=== PATIENT | male | born 1980 | race American Indian/Alaskan Native ===

== ENCOUNTER 2017-03-11 23:05 | Emergency (ER) | payer MEDICAID ==
[2017-03-11 23:10] VITALS: BP 168/103
[2017-03-12] MEDS ORDERED: TYLENOL PO ONE (00:47)
[2017-03-12] MEDS ORDERED: TORADOL IM ONE (00:47)
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
--- NOTE | 2017-03-12 07:19 | XRay Report ---
Chest with right ribs: History: Right hip pain, fall. Findings: No fracture lytic lesion at right ribs. No lung abnormality. Normal cardiomediastinal silhouette. Trachea is midline. Impression: No evidence of acute fracture. No acute lung changes.
== END 2017-03-12 02:16 | disposition home or self-care (01) ==
LOC: ED 23:05
DX: M54.9 Dorsalgia, unspecified (principal); R56.9 Unspecified convulsions; W01.0XXA Fall on same level from slipping, tripping and stumbling without subsequent striking against object, initial encounter; Y93.89 Activity, other specified; Y92.89 Other specified places as the place of occurrence of the external cause; Y99.8 Other external cause status
CPT/HCPCS: 71101; 96372; 99283; J1885

== ENCOUNTER 2017-03-14 23:54 | Emergency (ER) | payer MEDICAID ==
[2017-03-15 00:14] VITALS: BP 156/98
[2017-03-15] MEDS ORDERED: TYLENOL ONE (00:15)
[2017-03-15] MEDS ORDERED: TYLENOL PO ONE (02:07)
[2017-03-15] MEDS ORDERED: TORADOL IM ONE (02:54)
[2017-03-15] MEDS ORDERED: TORADOL ONE (02:59)
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
== END 2017-03-15 03:18 | disposition home or self-care (01) ==
LOC: ED 23:54
DX: Z76.0 Encounter for issue of repeat prescription (principal)
CPT/HCPCS: 96372; 99282; J1885

== ENCOUNTER 2017-05-07 16:08 | Emergency (ER) | payer MEDICAID ==
[2017-05-07 16:35] VITALS: BP 127/76
[2017-05-07] MEDS ORDERED: TORADOL IM ONE (18:05)
[2017-05-07] MEDS ORDERED: DELTASONE PO ONE (18:06)
[2017-05-07] MEDS ORDERED: DUONEB *Not for PRN Use IH ONE (18:06)
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
== END 2017-05-07 19:10 | disposition left against medical advice (07) ==
LOC: ED 16:08
DX: R05 Cough (principal); M54.5 Low back pain; G89.29 Other chronic pain; R56.9 Unspecified convulsions
CPT/HCPCS: 99281; J1885; J7512

== ENCOUNTER 2017-05-31 15:35 | Emergency (ER) | payer MEDICAID ==
[2017-05-31 16:48] LABS: Basophils % (Auto) 1.3 % (0.0-1.8); Eosinophils % (Auto) 2.6 % (0.0-4.3); Hematocrit 42.8 % (35.5-45.6); Hemoglobin 13.9 gm/dl (11.8-15.2); Mean Corpuscular HGB Conc 33 % (32-34); Mean Corpuscular Hemoglobin 29 pg (28-32); Mean Corpuscular Volume 89 fl (84-94); Platelet Count 317 K/mm3 (140-440); Red Blood Count 4.82 M/mm3 (3.65-5.03); Red Cell Distribution Width 13.7 % (13.2-15.2); White Blood Count 10.2 K/mm3 (4.5-11.0)
[2017-05-31 16:49] LABS: Anion Gap 19 mmol/L; Blood Urea Nitrogen 14 mg/dL (9-20); Calcium 8.7 mg/dL (8.4-10.2); Carbon Dioxide 22 mmol/L (22-30); Glucose 89 mg/dL (75-100); Potassium 3.9 mmol/L (3.6-5.0); Sodium 138 mmol/L (137-145)
--- NOTE | 2017-05-31 17:15 | XRay Report ---
FINAL REPORT EXAM: XR CHEST ROUTINE 2V HISTORY: Shortness of breath TECHNIQUE: Two view chest PA and lateral PRIORS: None. FINDINGS: Cardiac and mediastinal contours are unremarkable. No focal pulmonary infiltrate is identified. No pleural fluid collection seen. Pulmonary vasculature is unremarkable. IMPRESSION: Negative two-view chest
[2017-05-31] MEDS ORDERED: DUONEB *Not for PRN Use IH ONE (20:39)
[2017-05-31] MEDS ORDERED: DELTASONE PO ONE (20:39)
[2017-05-31] MEDS ORDERED: TESSALON PERLES PO ONE (20:40)
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
[2017-05-31 22:36] VITALS: BP 130/90
== END 2017-05-31 22:28 | disposition home or self-care (01) ==
LOC: ED 15:35
DX: J98.01 Acute bronchospasm (principal); J40 Bronchitis, not specified as acute or chronic; R56.9 Unspecified convulsions
CPT/HCPCS: 36415; 71020; 80048; 84484; 85025; 85379; 93005; 93010; 94640; 99284; J7512

== ENCOUNTER 2022-03-27 13:34 | Emergency (ER) | payer MEDICAID ==
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
--- NOTE | 2022-03-27 14:40 | XRay Report ---
XR ankle 3+V LT INDICATION / CLINICAL INFORMATION: pain s/p injury. COMPARISON: None available. FINDINGS: BONES/JOINT(S): No acute fracture or subluxation. 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 No focal bone ero sions or focal osteopenia to suggest inflammatory arthropathy. SOFT TISSUES: No significant abnormality. ADDITIONAL FINDINGS: None. Signer Name: Abhinav Jones MD Signed: 03/27/2022 2:35 PM Workstation Name: [id number]
--- NOTE | 2022-03-27 15:16 | XRay Report ---
Left foot 3 views INDICATION: Injury FINDINGS: MTP joints and IP joints appear normal. Midfoot alignment appears normal. Small calcaneal s purs are seen. Signer Name: Jonas Prescott MD Signed: 03/27/2022 3:11 PM Workstation Name: [id number]
[2022-03-27] MEDS ORDERED: KETOROLAC 10 MG TAB PO ONE (17:02)
[2022-03-27] MEDS ORDERED: oxyCODONE /ACETAMINOPHEN 5-325MG TAB PO ONE (17:02)
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
[2022-03-27 17:32] VITALS: BP 150/90
== END 2022-03-27 17:30 | disposition home or self-care (01) ==
LOC: ED 13:34
DX: M79.672 Pain in left foot (principal); M25.572 Pain in left ankle and joints of left foot
CPT/HCPCS: 99283

== ENCOUNTER 2022-04-01 15:49 | Outpatient (CLI) | payer MEDICAID ==
--- NOTE | 2022-04-01 17:11 | XRay Report ---
CHEST 2 VIEWS INDICATION / CLINICAL INFORMATION: COUGH. COMPARISON: 08/01/2018 FINDINGS: SUPPORT DEVICES: None. HEART / MEDIASTINUM: No significant abnormality. LUNGS / PLEURA: No significant pulmonary or pleural abnormality. No pneumothorax. ADDITIONAL FINDINGS: No significant additional findings. IMPRESSION: 1. No acute findings. Signer Name: Abhinav Jones MD Signed: 04/01/2022 5:07 PM Workstation Name: [id number]
== END 2022-04-01 15:50 | disposition home or self-care (01) ==
LOC: XRAY 15:49
PROVIDERS: ATTEND Family Medicine
DX: R05.9 Cough, unspecified (principal); Z88.8 Allergy status to other drugs, medicaments and biological substances
CPT/HCPCS: 71046